=== PATIENT | male | born 1960 | race Caucasian/White ===

== ENCOUNTER 2024-03-26 16:00 | Outpatient (RCR) | payer BC, SELFPAY ==
--- NOTE | 2024-03-09 16:12 | PT.ODAYNRPT ---
PT Outpatient Daily Note OP Daily Note Outpatient Physical Therapy Treatment Date: 03/09/24 Visit Reasons: left knee surgery Subjective: Doing HEP with ankle weights to extend knee. Wants to climb stairs into and out of office. Objective: See F/S for therex MT: PPM into knee extension, manual pull with strap into extension in standing x7' total Assessment: Improved flexion ROM to about 105 deg with overpressure Plan: Improve L knee ROM Length of Time (minutes) of Treatment: 30 Minutes Procedure Charges Therapeutic Exercise 30 minutes: Yes
--- NOTE | 2024-03-12 18:12 | PT.ODAYNRPT ---
PT Outpatient Daily Note OP Daily Note Outpatient Physical Therapy Treatment Date: 03/12/24 Visit Reasons: left knee surgery Subjective: Doing HEP with ankle weights to extend knee. Wants to climb stairs into and out of office. Objective: See F/S for therex MT: PPM into knee extension, manual pull with strap into extension in standing x7' total Assessment: Improved flexion ROM to about 110 deg with overpressure Plan: Improve L knee ROM Length of Time (minutes) of Treatment: 30 Minutes Procedure Charges Therapeutic Exercise 30 minutes: Yes
--- NOTE | 2024-03-13 16:02 | PT.ODAYNRPT ---
PT Outpatient Daily Note OP Daily Note Outpatient Physical Therapy Treatment Date: 03/13/24 Visit Reasons: left knee surgery Subjective: Pt reports L knee ROM is slowly progressing, pt compliant with HEP. Objective: Please see flow sheet for ther ex list. Assessment: Pt able to relax allowing for increase mobility during PROM of L knee into flexion and extension. Plan: Continue with poC. Length of Time (minutes) of Treatment: 30 Minutes SENIOR FINANCIAL REPORTING ANALYST Service Modifier Method I: Divide the number of min of care provided by the SENIOR FINANCIAL REPORTING ANALYST/STRAP BUCKLER MACHINE by the total min of care provided then multiply by 100. If greater than 11 percent modifier is required. Method II: Divide the total time of care provided to patient by 10 (round to the nearest whole number) and add 1 min. to set the minimum time requirement. If treatment total was 60 min., then 10% of 6 min PT CQ modifier applied: CQ Modifier applied Procedure Charges Therapeutic Exercise 30 minutes: Yes
--- NOTE | 2024-03-18 17:59 | PT.ODAYNRPT ---
PT Outpatient Daily Note OP Daily Note Outpatient Physical Therapy Treatment Date: 03/18/24 Visit Reasons: left knee surgery Subjective: Doing HEP with ankle weights to extend knee. Wants to climb stairs into and out of office. Objective: See F/S for therex MT: PPM into knee extension x7' total Assessment: Improved extension ROM to about -13 deg with overpressure Plan: Improve L knee ROM Length of Time (minutes) of Treatment: 30 Minutes Procedure Charges Therapeutic Exercise 30 minutes: Yes
--- NOTE | 2024-03-20 16:10 | PT.ODAYNRPT ---
PT Outpatient Daily Note OP Daily Note Outpatient Physical Therapy Treatment Date: 03/20/24 Visit Reasons: left knee surgery Subjective: Pt reports L knee is doing better continues to perform HEP. Objective: Please see flow sheet for ther ex list. Assessment: Worked on heel toe gait pattern without AD to work on normalizing gait. Plan: Continue with POC. Length of Time (minutes) of Treatment: 30 Minutes Procedure Charges Therapeutic Exercise 30 minutes: Yes
--- NOTE | 2024-03-24 17:41 | PT.ODAYNRPT ---
PT Outpatient Daily Note OP Daily Note Outpatient Physical Therapy Treatment Date: 03/24/24 Visit Reasons: left knee surgery Subjective: pt. states his knee flexion is improving with HEP, pt. wants to leave walker and use SPC when amb Objective: See F/S for therex MT: theraband pulls into extension 15x10 holds in standing Assessment: pt. demos 2 point gait w/ SPC 75 ft. in clinic, pt. amb w/ good balance and improved WB Plan: continue per POC Procedure Charges Therapeutic Exercise 30 minutes: Yes
--- NOTE | 2024-03-26 16:33 | PT.ODAYNRPT ---
PT Outpatient Daily Note OP Daily Note Outpatient Physical Therapy Treatment Date: 03/26/24 Visit Reasons: left knee surgery Subjective: Pt reports knee is feeling better, continues to use walking stick. Objective: Please see flow sheet for ther ex list. Assessment: Performed PROM into knee flexion and extension, pt able to relax allowing for increase range. Plan: Continue with POC. Length of Time (minutes) of Treatment: 30 Minutes Procedure Charges Therapeutic Exercise 30 minutes: Yes
== END 2024-04-04 23:59 | disposition home or self-care (01) ==
LOC: CPTX 16:00
PROVIDERS: PCP Orthopaedic Surgery Orthopaedic Trauma; Referring Provider Orthopaedic Surgery Orthopaedic Trauma; Visit Provider Orthopaedic Surgery Orthopaedic Trauma
DX: M25.562 Pain in left knee (principal); Z96.652 Presence of left artificial knee joint; I10 Essential (primary) hypertension
CPT/HCPCS: 97110

== ENCOUNTER 2024-04-13 16:00 | Outpatient (RCR) | payer BC, SELFPAY ==
--- NOTE | 2024-04-06 17:28 | PT.ODAYNRPT ---
PT Outpatient Daily Note OP Daily Note Outpatient Physical Therapy Treatment Date: 04/06/24 Visit Reasons: left knee surgery Subjective: pt. states he has difficult with L knee extension Objective: see flow sheet for ther-ex manual therapy,PROM into knee extension x5 minutes with overpressure Assessment: pt. has pain with manual therapy into extension L knee is increasing ROM and strength with manual pullback theraband Plan: continue PT per POC Length of Time (minutes) of Treatment: 30 Minutes Procedure Charges Therapeutic Exercise 30 minutes: Yes
--- NOTE | 2024-04-09 17:20 | PT.ODAYNRPT ---
PT Outpatient Daily Note OP Daily Note Outpatient Physical Therapy Treatment Date: 04/09/24 Visit Reasons: left knee surgery Subjective: pt. reports ther-ex helps with decreasing pain at home Objective: see ther-ex for POC AROM knee extension measured at -9 degrees MT:PROM L knee anterior to posterior compression 10 sec holds x7 min Assessment: PROM anterior to posterior compression with 10 sec holds improves L knee extension Plan: continue PT per POC to improve L knee extension Length of Time (minutes) of Treatment: 30 Minutes Procedure Charges Therapeutic Exercise 30 minutes: Yes
--- NOTE | 2024-04-13 16:26 | PT.ODAYNRPT ---
PT Outpatient Daily Note OP Daily Note Outpatient Physical Therapy Treatment Date: 04/13/24 Visit Reasons: left knee surgery Subjective: Pt reports L knee is doing better, no longer using AD. Pt reports progress with flexibility, performs HEP 5x a week. Objective: Please see flow sheet for ther ex list. Assessment: Pt performed step up and down exercise with no MOP MACHINE OPERATOR. Continued focus on improving ROM of L knee. Pt continues to present with impairments in knee ROM, would benefit from additional PT to continue working toward reaching rehab goals initially set for PT. Plan: Request additional PT visits. Length of Time (minutes) of Treatment: 30 Minutes HONEY LIQUEFIER Service Modifier Method I: Divide the number of min of care provided by the HONEY LIQUEFIER/DESI by the total min of care provided then multiply by 100. If greater than 11 percent modifier is required. Method II: Divide the total time of care provided to patient by 10 (round to the nearest whole number) and add 1 min. to set the minimum time requirement. If treatment total was 60 min., then 10% of 6 min PT CQ modifier applied: CQ Modifier applied Procedure Charges Therapeutic Exercise 30 minutes: Yes
--- NOTE | 2024-04-13 16:45 | PT.ODS1RPT ---
PT OP Progress/Discharge Note Date of Service: 04/13/24 Progress Note/DC Note Progress Note/Discharge Note: Progress Note Patient Information Visit Reasons: left knee surgery Service Continue Service or Discharge: Continue Service Status Subjective: Less pain and improved ambulation tolerance without FWW since starting therapy. Objective: AROM L knee Extension: -9 degrees Flexion: 107 today Gait: lateral sway and not full extension of L knee Rx by Gloria Monzon WEB MARKETING STRATEGIST today Assessment: Pt has attended 04/16 authorized visits with good improvement with goals. Pt has improved knee flexion AROM to about 113 on a good day but extension is progressing slowly. Pt would benefit from continued therapy in order to meet ROM and gait goals. Plan: Request additional authorized visits x12 to continue PT to improve L knee extension ROM and gait pattern to symmetrical.
== END 2024-05-05 23:59 | disposition home or self-care (01) ==
LOC: CPTX 16:00
PROVIDERS: PCP Orthopaedic Surgery Orthopaedic Trauma; Referring Provider Orthopaedic Surgery Orthopaedic Trauma; Visit Provider Orthopaedic Surgery Orthopaedic Trauma
DX: M25.562 Pain in left knee (principal); M25.662 Stiffness of left knee, not elsewhere classified; Z96.652 Presence of left artificial knee joint
CPT/HCPCS: 97110

== ENCOUNTER → 2024-04-23 | Outpatient (CLI) | payer BC, SELFPAY ==
--- NOTE | 2024-04-23 | XR_ITS ---
Examination: Duplex scan of the lower extremity, unilateral left complete Date and time of exam: April 23, 2024 0716 hrs. Indications: Status post knee replacement February 2024 followed by left calf pain this week Technique: Duplex scan of the extremity veins using B-mode/grayscale imaging and Doppler spectral analysis and color flow Attention is directed to internal echogenicity, compression and augmentation involving these veins, color flow assessment, spectral analysis Findings: Major deep venous structures in the extremity demonstrate normal course and caliber. There is no evidence of deep vein thrombosis. Normal color flow and spectral analysis Impression: Negative for DVT..
== END | disposition home or self-care (01) ==
LOC: CDIM 06:43
PROVIDERS: PCP Family Medicine; Referring Provider Nurse Practitioner Family; Visit Provider Nurse Practitioner Family
DX: M79.662 Pain in left lower leg (principal); Z96.652 Presence of left artificial knee joint
CPT/HCPCS: 93971

== ENCOUNTER → 2024-05-13 | Outpatient (CLI) | payer BC, SELFPAY ==
[2024-05-13 17:37] LABS: Basophils # (Auto) 0.1 Thou/mm3 (0.0-0.2); Basophils % (Auto) 1 % (0-2.5); Eosinophils # (Auto) 0.2 Thou/mm3 (0.0-0.5); Eosinophils % (Auto) 2 % (0-10); Hematocrit 46.4 % (41.0-53.0); Hemoglobin 15.1 g/dL (13.5-16.0); Immature Granulocytes % (Auto) 0 % (0-0); Immature Granulocytes Auto 0.01 Thou/mm3 (0.00-0.00); Lymphocytes # (Auto) 2.1 Thou/mm3 (1.0-4.8); Lymphocytes % (Auto) 29 % (10-50); Mean Corpuscular HGB Conc 32.5 g/dl (31.0-37.0); Mean Corpuscular Hemoglobin 27.8 pg (25.0-35.0); Mean Corpuscular Volume 86 fL (80-100); Monocytes # (Auto) 0.7 Thou/mm3 (0.0-0.8); Monocytes % (Auto) 9 % (0-12); Neutrophils # (Auto) 4.3 Thou/mm3 (1.8-7.7); Neutrophils % (Auto) 59 % (37-80); Nucleated Red Blood Cell % 0 /100 WBC (0); Platelet Count 267 Thou/mm3 (140-440); RDW Standard Deviation 43.6 fL (35.1-43.9); Red Blood Count 5.43 Miln/mm3 (4.50-5.90); White Blood Count 7.3 Thou/mm3 (3.8-10.6)
[2024-05-13 17:40] LABS: Alanine Aminotransferase 12 U/L (10-49); Aspartate Amino Transferase 14 U/L (0-34); C-Reactive Protein 0.6 mg/dL (0.0-0.9); Creatinine (Component) 0.9 mg/dL (0.6-1.3); Uric Acid 5.8 mg/dL (3.7-9.2); eGFR > 60 See Note
[2024-05-13 18:11] LABS: Sed Rate (ESR) 6 mm/hr (0-20)
== END | disposition home or self-care (01) ==
LOC: COPL 16:10
PROVIDERS: PCP Family Medicine; Referring Provider Internal Medicine Rheumatology; Visit Provider Internal Medicine Rheumatology
DX: M10.9 Gout, unspecified (principal)
CPT/HCPCS: 36415; 82565; 84450; 84460; 84550; 85025; 85652; 86140

== ENCOUNTER 2024-05-27 16:00 | Outpatient (RCR) | payer BC, SELFPAY ==
--- NOTE | 2024-05-12 17:22 | PT.ODAYNRPT ---
PT Outpatient Daily Note OP Daily Note Outpatient Physical Therapy Treatment Date: 05/12/24 Visit Reasons: lEFT KNEE SURGERY Subjective: Overall better, improved extension Objective: See F/S for therex MAHSA x7' Assessment: Improved knee extension ROM to about -10 Plan: Continue per POC Length of Time (minutes) of Treatment: 30 Minutes Procedure Charges Therapeutic Exercise 30 minutes: Yes
--- NOTE | 2024-05-18 18:05 | PT.ODAYNRPT ---
PT Outpatient Daily Note OP Daily Note Outpatient Physical Therapy Treatment Date: 05/18/24 Visit Reasons: lEFT KNEE SURGERY Subjective: Overall better, improved extension with walking Objective: See F/S for therex P x7' Assessment: Improved knee extension ROM to about -7 deg to allow for better heel strike. Plan: Continue per POC Length of Time (minutes) of Treatment: 30 Minutes Procedure Charges Therapeutic Exercise 30 minutes: Yes
--- NOTE | 2024-05-27 17:31 | PT.ODAYNRPT ---
PT Outpatient Daily Note OP Daily Note Outpatient Physical Therapy Treatment Date: 05/27/24 Visit Reasons: lEFT KNEE SURGERY Subjective: Overall better, improved extension with walking Objective: See F/S for therex Assessment: Improved knee extension ROM to about -7 deg to allow for better heel strike. Plan: Continue per POC Length of Time (minutes) of Treatment: 30 Minutes Procedure Charges Therapeutic Exercise 30 minutes: Yes
== END 2024-06-05 23:59 | disposition home or self-care (01) ==
LOC: CPTX 16:00
PROVIDERS: PCP Orthopaedic Surgery Orthopaedic Trauma; Referring Provider Orthopaedic Surgery Orthopaedic Trauma; Visit Provider Orthopaedic Surgery Orthopaedic Trauma
DX: M25.562 Pain in left knee (principal); Z96.652 Presence of left artificial knee joint; I10 Essential (primary) hypertension
CPT/HCPCS: 97110

== ENCOUNTER 2024-10-26 13:52 | Outpatient (RCR) | payer BC, SELFPAY ==
--- NOTE | 2024-10-26 14:10 | PTNOTE_ITS ---
PT OP Initial Eval Patient Information Outpatient Physical Therapy Treatment Date: 10/26/24 Visit Reasons: R TKA Medical Diagnosis: Z47.1 Z96.65 M25.56 Treatment Dx #1: R knee pain Treatment Dx #2: Dec R knee ROM Start of Care: 10/26/24 Date of Onset: 09/01/24 Smoking Status Smoking Status: Never smoker Initial Assessment Subjective: Pt is 64 yr old male s/p R TKA pt presents ambulating with FWW. He is doing the HEP from HH therapy and reports stiffness of the knee and pain in the kneecap area. He has RTW at a desk job. PLOF: prior to onset of knee pain pt was ambul ating independently without assistive device. PMH: HTN, thyroidectomy Pt goal: to walk without pain and the cane, straighten the knee Objective: R knee AROM: ? Flexion: 105 deg Extension: -20 deg ? SLR: ? 55 deg with extensor lag ? Strength: ? Quads and hamstrings 3-/5 ? Flexed knee gait pattern with decreased WB tolerance on R LE and FWW Assessment: Pt presentation consistent with post op R TKA with decreased ROM, strength ? and WB tolerance. Pt lacks a few degrees of knee extension and flexion is limited by ? myofascial limitations and pain.? Pt requires skilled therapy to improve ROM ? and strength and has good rehab potential.? Short Term and Corporate Statistical Financial Analyst Goals 1. Independent with HEP 2. Improved knee ROM to full extension to 110 deg flexion 3. Improved quad and hamstring strength to 4+/5 4. Improved ambulatory tolerance to community distances with symmetrical ?? gait pattern without assistive device. Treatment Plan 90 day POC 1. Manual therapy ? 2. Therex ? 3. Modalities as indicated, moist heat, ice, estim Frequency and Duration: 2-3x a week for up to 24 sessions Certification Dates: 10/26/24 to 01/25/25 Procedure Charges OP PT Eval Mod Complex 30 minutes: Yes
== END 2024-11-02 23:59 | disposition home or self-care (01) ==
LOC: CPTX 13:52
PROVIDERS: PCP Family Medicine; Referring Provider Orthopaedic Surgery Orthopaedic Trauma; Visit Provider Orthopaedic Surgery Orthopaedic Trauma
DX: M25.561 Pain in right knee (principal); Z96.651 Presence of right artificial knee joint; I10 Essential (primary) hypertension
CPT/HCPCS: 97162

== ENCOUNTER 2024-12-03 16:00 | Outpatient (RCR) | payer BC, SELFPAY ==
--- NOTE | 2024-11-03 15:59 | PT.ODAYNRPT ---
PT Outpatient Daily Note OP Daily Note Outpatient Physical Therapy Treatment Date: 11/03/24 Visit Reasons: RIGHT TKA Subjective: Pt reports compliance with HEP. Objective: Please see flow sheet for there x list. Assessment: Pt tolerated interventions with minimal pain and soreness. Plan: Continue with POc. Length of Time (minutes) of Treatment: 30 Minutes Procedure Charges Therapeutic Exercise 30 minutes: Yes
--- NOTE | 2024-11-05 16:11 | PT.ODAYNRPT ---
PT Outpatient Daily Note OP Daily Note Outpatient Physical Therapy Treatment Date: 11/05/24 Visit Reasons: RIGHT TKA Subjective: Pt reports R knee is doing better, continues to perform HEP. Objective: Please see flow sheet for ther ex list. Assessment: Pt demonstrates increase tolerance with heel prop exercise. Plan: Continue with POC. Length of Time (minutes) of Treatment: 30 Minutes Procedure Charges Therapeutic Exercise 30 minutes: Yes
--- NOTE | 2024-11-10 16:05 | PT.ODAYNRPT ---
PT Outpatient Daily Note OP Daily Note Outpatient Physical Therapy Treatment Date: 11/10/24 Visit Reasons: RIGHT TKA Subjective: Pt reports progress with R knee. Objective: Please see flow sheet for ther ex list. Assessment: Continued focus on restoring ROM of R knee to normalize gait, pt also demonstrates forward trunk flexion during ambulation corrects with cues. Plan: Continue with poC. Length of Time (minutes) of Treatment: 30 Minutes Procedure Charges Therapeutic Exercise 30 minutes: Yes
--- NOTE | 2024-11-12 16:39 | PT.ODAYNRPT ---
PT Outpatient Daily Note OP Daily Note Outpatient Physical Therapy Treatment Date: 11/12/24 Visit Reasons: RIGHT TKA Subjective: Overall better, improved extension with walking. He wants to leave early today Objective: See F/S for therex Assessment: Improved knee extension ROM to allow for better heel strike. Plan: Continue per POC Length of Time (minutes) of Treatment: 15 Minutes Procedure Charges Therapeutic Exercise 15 minutes: Yes
--- NOTE | 2024-11-17 17:30 | PT.ODAYNRPT ---
PT Outpatient Daily Note OP Daily Note Outpatient Physical Therapy Treatment Date: 11/17/24 Visit Reasons: RIGHT TKA Subjective: Overall better, improved extension with walking Objective: See F/S for therex Ice x7' R knee Assessment: Improved knee extension ROM to allow for better heel strike but lacking a few degrees Plan: Continue per POC Length of Time (minutes) of Treatment: 30 Minutes Procedure Charges Therapeutic Exercise 15 minutes: Yes
--- NOTE | 2024-11-19 17:45 | PT.ODAYNRPT ---
PT Outpatient Daily Note OP Daily Note Outpatient Physical Therapy Treatment Date: 11/19/24 Visit Reasons: RIGHT TKA Subjective: Overall better, improved extension with walking Objective: See F/S for therex Ice x7' R knee Assessment: Improved knee extension ROM to allow for better heel strike but lacking a few degrees. He ambulates with decreased WB tolerance and stance time with lateral sway to the R. Plan: Continue per POC Length of Time (minutes) of Treatment: 30 Minutes Procedure Charges Therapeutic Exercise 15 minutes: Yes
--- NOTE | 2024-11-24 16:52 | PT.ODAYNRPT ---
PT Outpatient Daily Note OP Daily Note Outpatient Physical Therapy Treatment Date: 11/24/24 Visit Reasons: RIGHT TKA Subjective: Overall better, improved extension with walking Objective: See F/S for therex Ice x7' R knee Assessment: Improved knee extension ROM to allow for better heel strike but lacking a few degrees. He ambulates with decreased WB tolerance and stance time with lateral sway to the R. Plan: Continue per POC Length of Time (minutes) of Treatment: 30 Minutes Procedure Charges Therapeutic Exercise 15 minutes: Yes
--- NOTE | 2024-12-01 18:46 | PT.ODAYNRPT ---
PT Outpatient Daily Note OP Daily Note Outpatient Physical Therapy Treatment Date: 12/01/24 Visit Reasons: RIGHT TKA Subjective: Overall better, improved extension with walking Objective: See F/S for therex Ice x7' R knee Assessment: Improved knee extension ROM to allow for better heel strike but lacking a few degrees. He ambulates with decreased WB tolerance and stance time with lateral sway to the R. Plan: Continue per POC Length of Time (minutes) of Treatment: 30 Minutes Procedure Charges Therapeutic Exercise 30 minutes: Yes
--- NOTE | 2024-12-03 16:39 | PT.ODAYNRPT ---
PT Outpatient Daily Note OP Daily Note Outpatient Physical Therapy Treatment Date: 12/03/24 Visit Reasons: RIGHT TKA Subjective: Pt reports R knee is doing better. Objective: Please see flow sheet for ther ex list. Assessment: Pt demonstrates improved ROM, progressing strengthening and working on heel strike to normalize gait. Plan: Continue with pOC. Length of Time (minutes) of Treatment: 30 Minutes Procedure Charges Therapeutic Exercise 30 minutes: Yes
== END 2024-12-03 23:59 | disposition home or self-care (01) ==
LOC: CPTX 16:00
PROVIDERS: PCP Orthopaedic Surgery Orthopaedic Trauma; Referring Provider Orthopaedic Surgery Orthopaedic Trauma; Visit Provider Orthopaedic Surgery Orthopaedic Trauma
DX: M25.561 Pain in right knee (principal); M25.661 Stiffness of right knee, not elsewhere classified; Z96.651 Presence of right artificial knee joint; I10 Essential (primary) hypertension
CPT/HCPCS: 97110

== ENCOUNTER 2024-12-16 16:00 | Outpatient (RCR) | payer BC, SELFPAY ==
--- NOTE | 2024-12-07 16:31 | PT.ODAYNRPT ---
PT Outpatient Daily Note OP Daily Note Outpatient Physical Therapy Treatment Date: 12/07/24 Visit Reasons: RT TKA Subjective: Pt content to share that he can half kneel on L knee. Objective: Please see flow sheet for ther ex list. Assessment: ROm of R knee continues to improve. Plan: Continue with POC. Length of Time (minutes) of Treatment: 30 Minutes Procedure Charges Therapeutic Exercise 30 minutes: Yes
--- NOTE | 2024-12-16 17:26 | PT.ODAYNRPT ---
PT Outpatient Daily Note OP Daily Note Outpatient Physical Therapy Treatment Date: 12/16/24 Visit Reasons: RT TKA Subjective: Overall better, improved extension with walking Objective: See F/S for therex Ice x7' R knee Assessment: Improved knee extension ROM to allow for better heel strike but lacking a few degrees. Improved knee flexion to 120 deg to meet that goal. He ambulates with decreased WB tolerance and stance time with lateral sway to the R. Plan: Continue per POC Length of Time (minutes) of Treatment: 30 Minutes Procedure Charges Therapeutic Exercise 30 minutes: Yes
== END 2025-01-03 23:59 | disposition home or self-care (01) ==
LOC: CPTX 16:00
PROVIDERS: PCP Orthopaedic Surgery Orthopaedic Trauma; Referring Provider Orthopaedic Surgery Orthopaedic Trauma; Visit Provider Orthopaedic Surgery Orthopaedic Trauma
DX: M25.561 Pain in right knee (principal); M25.661 Stiffness of right knee, not elsewhere classified; Z96.651 Presence of right artificial knee joint; I10 Essential (primary) hypertension
CPT/HCPCS: 97110

== ENCOUNTER → 2025-02-23 | Outpatient (CLI) | payer BC, SELFPAY ==
[2025-02-23 16:48] LABS: Prostate Specific Antigen 1.53 ng/mL (0-4.00)
[2025-02-23 16:54] LABS: Alanine Aminotransferase 16 U/L (10-49); Albumin, Serum 4.5 gm/dL (3.4-4.8); Albumin/Globulin Ratio 2.8 (1.2-2.2); Alkaline Phosphatase 127 U/L (46-116); Anion Gap 8 (7-16); Aspartate Amino Transferase 19 U/L (0-34); BUN/Creatinine Ratio 12 Ratio (12-20); Bilirubin,Total 0.5 mg/dL (0.3-1.2); Blood Urea Nitrogen 11 mg/dL (9-23); Calcium 9.3 mg/dL (8.3-10.6); Calcium (Corrected) 9.3 mg/dL (8.5-10.1); Carbon Dioxide 27.7 mMol/L (20.0-31.0); Chloride 106 mMol/L (98-107); Creatinine (Component) 0.9 mg/dL (0.6-1.3); Globulin 1.6 gm/dL (2.3-3.5); Glucose 84 mg/dL (74-106); Osmolality,Calculated 281 (275-295); Potassium 4.3 mMol/L (3.4-5.1); Sodium 142 mMol/L (136-145); Total Protein 6.1 gm/dL (5.7-8.2); Uric Acid 5.4 mg/dL (3.7-9.2); eGFR > 60 See Note
== END | disposition home or self-care (01) ==
LOC: COPL 15:25
PROVIDERS: PCP Family Medicine; Referring Provider Urology; Visit Provider Internal Medicine Rheumatology
DX: M10.9 Gout, unspecified (principal); N40.1 Benign prostatic hyperplasia with lower urinary tract symptoms
CPT/HCPCS: 36415; 80053; 84153; 84550

== ENCOUNTER → 2025-03-01 | Outpatient (BNVA) | payer BC, SELFPAY | END | disposition home or self-care (01) | PROVIDERS: PCP Family Medicine; Referring Provider Family Medicine; Visit Provider Physician Assistant | DX: N40.1 Benign prostatic hyperplasia with lower urinary tract symptoms (principal); I10 Essential (primary) hypertension | CPT/HCPCS: Q3014 ==